=== PATIENT | male | born 1995 | race Caucasian/White ===

== ENCOUNTER 2021-06-01 16:01 | Outpatient (CLI) | payer SELFPAY ==
--- NOTE | 2021-06-01 16:16 | MR_ITS ---
WS: [id number] MRI BRAIN WITHOUT CONTRAST HISTORY: WEAKNESS LEFT SIDE OF BODY/NEW ONSET SEIZURE COMPARISON: None available. TECHNIQUE: Diffusion imaging, multiplanar T1, T2 and FLAIR imaging obtained. Additional high-resoluti on imaging through the temporal lobes. No evidence for acute infarct or hemorrhage. Ambrocio-white matter differentiation is normal. No white ma tter lesions are identified. No pericallosal and callosal signal abnormalities. No prior infarct. Sym metric appearance of the hippocampal formations. No remote or acute infarcts are volume loss. Ventricles and extra-axial spaces are normal. No inferior displacement of cerebellar tonsils. The sella turcica and pituitary gland are unremarkabl e. Unenhanced appearance of the optic nerves is negative. Dural venous sinuses and [place] of [place] demonstrate no abnormality on this unenhanced studies. Paranasal sinuses: Mucous retention cysts in the RIGHT maxillary sinus. Mild mucoperiosteal thickenin g of the maxillary and ethmoid air cells. No air-fluid levels. Mastoid air cells: Very dense soft tissue filling the RIGHT mastoid air cells. Consistent with mastoi ditis. Calvarium and scalp: Intact. MR/MR head wo con* [id number] IMPRESSION: 1. No acute infarct. 2. No white matter lesions or pericallosal signal abnormalities. 3. Unenhanced appearance of the optic nerves is negative. 4. Dense consolidation RIGHT mastoid air cells.
== END 2021-06-01 16:02 | disposition home or self-care (01) ==
PROVIDERS: PCP Family Medicine; Visit Provider Family Medicine
DX: G81.90 Hemiplegia, unspecified affecting unspecified side (principal); R56.9 Unspecified convulsions
CPT/HCPCS: 70551

== ENCOUNTER → 2021-06-06 15:13 | Outpatient (BNVA) | payer SELFPAY | PROVIDERS: PCP Family Medicine; Visit Provider Specialist | DX: R56.9 Unspecified convulsions (principal) | CPT/HCPCS: 95816 ==

== ENCOUNTER → 2021-06-10 15:02 | Outpatient (BNVA) | payer SELFPAY | PROVIDERS: PCP Family Medicine; Visit Provider Nurse Practitioner | DX: G40.909 Epilepsy, unspecified, not intractable, without status epilepticus (principal); F17.200 Nicotine dependence, unspecified, uncomplicated | CPT/HCPCS: 99204 ==

== ENCOUNTER → 2021-07-06 10:16 | Outpatient (BNVA) | payer SELFPAY | PROVIDERS: PCP Family Medicine; Visit Provider Specialist | DX: R56.9 Unspecified convulsions (principal); F17.200 Nicotine dependence, unspecified, uncomplicated | CPT/HCPCS: 95816 ==

== ENCOUNTER 2021-07-31 15:37 | Emergency (ER) | payer SELFPAY ==
[2021-07-31 15:59] VITALS: BP 134/78; PULSE 73; RESP 18; TEMP 36.7; O2SAT 98; BMI 18.6
--- NOTE | 2021-07-31 16:21 | W.ED.DENTAL ---
HPI - Dental/Oral General: Chief complaint: Dental/Oral Stated complaint: Tooth pain Time Seen by Provider: 07/31/21 16:13 History of Present Illness: HPI Narrative: Patient is a 25-year-old male comes to the ED with dental pain. Patient says several days ago he was eating some chips and felt a chip break of in the back left lower molar. He is now having some 7 out of 10 pain in his left lower molar. Patient is currently calling around to find a dentist. Associated symptoms: Denies fever(s) or odynophagia Review of Systems Const: Denies: fever(s), chills or fatigue Eyes: Denies: change in vision or eye discomfort ENMT: Reports: dental pain; Denies: throat pain, odynophagia, nasal discharge or nasal congestion Card: Denies: chest pain, palpitations, edema, swelling of feet/ankles, dyspnea on exertion or orthopnea Resp: Denies: dyspnea, productive cough or non-productive cough GI: Denies: abdominal pain, nausea, vomiting, diarrhea, constipation or hematochezia : Denies: flank pain, difficulty urinating, dysuria or hematuria Musc: Denies: neck pain, back pain or extremity swelling Skin/Breast: Denies: rash or new lesions Neuro: Denies: headache(s), numbness in extremities or weakness in extremities PFSH ED PFSH: Social History Smoking and tobacco status: current every day smoker Alcohol intake: never History of recent travel: No Physical Exam Const: COMMON NORMALS: no acute distress, patient oriented x3, healthy appearing and alert GENERAL APPEARANCE: cooperative and comfortable HENMT: COMMON NORMALS: normocephalic HEAD & SCALP: normocephalic MOUTH: Normal oral and palatal mucosa present TEETH & GINGIVA: Yes abnormal tooth and associated gingiva lower left third molar tender and with associated gingival edema, Yes caries and Yes poor dentition THROAT: posterior oropharynx normal and uvula midline Neck/C-Spine: COMMON NORMALS: supple GENERAL: Yes normal visual inspection Resp: COMMON NORMALS: normal respiratory effort, No retractions, No use of accessory muscles and clear to auscultation bilaterally AUSCULTATION: clear to auscultation bilaterally Cardio: COMMON NORMALS: regular rate, regular rhythm, S1 normal heart sound present, S2 normal heart sound present, No gallops present (Cardio), No clicks present (Cardio), No murmurs present (Cardio) and Peripheral pulses 2+ throughout RATE: regular rate RHYTHM: regular rhythm HEART SOUNDS: S1 normal heart sound present and S2 normal heart sound present PERIPHERAL PULSES: Peripheral pulses 2+ throughout GI: COMMON NORMALS: Normal to inspection, nondistended, normoactive bowel sounds present, Soft to palpation, non-tender and no masses PALPATION: Yes Soft to palpation : COMMON NORMALS: Yes no CVA tenderness BLADDER/KIDNEY EXAM: Yes no CVA tenderness Back/Pelvis: COMMON NORMALS: no CVA tenderness Extremity: COMMON NORMALS: normal to inspection Neuro: COMMON NORMALS: patient oriented x3 and moves all extremities SENSORIUM/ORIENTATION: Yes alert Skin: GENERAL SKIN EXAM: dry skin Course Vital Signs: Vital signs: Vital Signs Temperature 98.1 F 07/31/21 15:59 Pulse Rate 73 07/31/21 15:59 Respiratory Rate 20 H 07/31/21 16:38 Blood Pressure 134/78 07/31/21 15:59 Pulse Oximetry 98 07/31/21 15:59 MDM - Dental/Oral MDM Narrative: Medical decision making narrative: Patient is a 25-year-old male comes to the ED with dental pain. Patient was discharged home with a prescription for ibuprofen for pain and clindamycin. Patient told to contact dentist and get set up with an appointment for further evaluation as soon as possible. Return to ED precautions given. Patient understood agree with plan. Discharge Plan Discharge Patient Disposition: Home Clinical Impression: Pain due to dental caries Condition: Stable Prescriptions: New clindamycin HCl 150 mg capsule 300 mg PO QID 7 Days Qty: 56 RF: 0 ibuprofen 800 mg tablet 800 mg PO Q8H PRN (Reason: pain) Qty: 20 RF: 0 Medrol (Guerrero) 4 mg tablets,dose pack See Rx Instructions .ROUTE .COMPLEX Qty: 21 RF: 0 No Action levetiracetam [Keppra] 500 mg tablet 500 mg PO BID Qty: 60 RF: 6 Discharge Orders: Discharge ED (Routine); Ordered 07/31/21 Ordered By: Yoan Mcfarland Referrals: Goran Jacob MD [Primary Care Provider] - Discharge Diet: Regular Discharge Activity: Resume usual activity Patient Instructions: Dental Caries (Cavities) Activity Restrictions/Additional Instructions: Call and get appointment set up with dentist as soon as possible. Take medications as prescribed. Return to the ER or your medical provider if condition worsens. Please read and understand discharge instructions. Thank you for choosing [facility] for your healthcare needs today. Please realize this is an emergency room and that we are providing you with a medical screening exam and this may not be complete and all inclusive of all the testing and or work up that you may need to determine your ailment or severity of your illness. It is very important that you follow up as instructed or that you return to the Emergency Department should you have concerns or if your condition changes or worsens in any way. Coding Level of Care Code ED Legal Paraprofessional for Maricarmen Samano Exam Comprehensive
[2021-07-31] MEDS: HYDROcodone-acetaminophen 5-325 mg Tablet 1 TAB PO (16:37)
[2021-07-31 16:38] VITALS: RESP 20
== END 2021-07-31 16:39 | disposition home or self-care (01) ==
PROVIDERS: Emergency Provider Physician Assistant; PCP Family Medicine
DX: K02.9 Dental caries, unspecified (principal); F17.210 Nicotine dependence, cigarettes, uncomplicated
CPT/HCPCS: 99282

== ENCOUNTER 2022-05-30 08:50 | Emergency (ER) | payer MEDICAID, SELFPAY ==
[2022-05-30 08:58] VITALS: BP 114/65; PULSE 68; RESP 16; O2SAT 97; BMI 18.6
[2022-05-30 09:42] LABS: Valproic Acid Level 2.8 ug/mL (50-100)
[2022-05-30 09:43] LABS: Basophils # 0.1 10^3/uL (0.0-0.1); Basophils % 1.2 %; Eosinophils # 0.3 10^3/uL (0.0-0.8); Eosinophils % 5.8 %; Hemoglobin 14.2 g/dL (11.7-16.6); Lymphocytes # 2.1 10^3/uL (0.8-4.8); Lymphocytes % 39.5 %; Mean Corpuscular HGB Conc 33.8 g/dL (30.0-36.0); Mean Corpuscular Hemoglobin 31.6 pg (28.0-34.0); Mean Corpuscular Volume 93.3 fl (80-94); Mean Platelet Volume 10.6 fL (7.4-10.4); Monocytes # 0.6 10^3/uL (0.2-0.9); Monocytes % 11.9 %; Neutrophils # 2.16 10^3/uL (1.8-7.7); Neutrophils % 41.4 %; Nucleated Red Blood Cells % 0 %; Platelet Count 225 10^3/cmm (130-400); Red Cell Distribution Width 12.1 % (12.1-15.1); White Blood Count 5.2 10^3/uL (4.0-10.0)
--- NOTE | 2022-05-30 09:44 | PC.PHAR ---
pt states he takes care of his own medications-pt states he stop taking the keppra 500mg bid on 05/22/22 rx bottle brought in was dated 11/21/21 90d/s for 500mg bid pt states he was taking keppra 750mg then had to switch back to the keppra 500mg tabs states thats why he had some left over-pt states stop taking keppra 500mg bid on 05/22/22 and started taking depakore er 500mg hs
[2022-05-30 09:47] LABS: Alanine Aminotransferase 16 U/L (0-41); Albumin Level 4.9 g/dL (3.5-5.2); Alkaline Phosphatase 69 IU/L (40-130); Anion Gap 16.3 (5-19); Aspartate Amino Transferase 19 U/L (0-40); Blood Urea Nitrogen 14 mg/dL (6-20); Carbon Dioxide 28 mmol/L (22-29); Chloride 102 mmol/L (98-107); Creatinine Clr Calc Pharmacy 103.7382; Globulin 2.5 g/dL (1.3-4.6); Glucose 91 mg/dL (65-115); Osmolality Calculated 294 mOsm/kg (285-295); Potassium 4.3 mmol/L (3.5-5.1); Sodium 142 mmol/L (136-145); Total Bilirubin 0.7 mg/dL (0.15-1.2); Total Protein 7.4 g/dL (6.6-8.7)
[2022-05-30 09:59] LABS: Add Urine Microscopic? NO; Charge for UA Resulting for Rev
[2022-05-30 10:01] LABS: Bilirubin Urine Neg (Negative); Blood Urine Neg (Negative); Glucose Urine UA Norm (Normal); Ketones Urine Negative (Negative); Leukocyte Esterase Urine Negative (Negative); Nitrate Urine Negative (Negative); Protein Urine Neg (Negative); Urine Appearance Clear (CLEAR); Urine Color Yellow (Yellow); Urobilinogen Urine Norm (Negative); pH Urine 6 (5-7)
--- NOTE | 2022-05-30 10:51 | ED_ITS ---
HPI - Seizure General: Chief Complaint: Seizure Stated Complaint: SEIZURE Time Seen by Provider: 05/30/22 08:52 History of Present Illness: HPI Narrative: 26-year-old male with a history of seizures presents emergency room after having had a seizure this morning at 5:30 AM. He can remember he was bending over to grab something and then he has approximately a 2-hour gap before he can recollect anything else. He has some generalized myalgias. He found himself wedged with his leg between a fan and a bedside table when he woke up. He denies any other injuries. They recently have been adjusting his seizure medications he sees Dr. Austin he had been titrating him off of Keppra and starting by valproic acid because he had been having breakthrough seizures on the Keppra. He did miss a dose of the dye valproic acid last evening. MD complaint: seizure Onset (ago): minute(s) Description of Episode: tonic-clonic movement Seizure History: Yes Place: Home Possible Precipitating Event: medication (Changes) Associated symptoms: Reports confusion; Deny chest pain, chills, cough, diaphoresis, fever(s), anorexia, malaise, rash, short of breath, syncope or weakness Review of Systems Const: Denies: fever(s), chills, fatigue, malaise or diaphoresis ENMT: Denies: throat pain, ear or mastoid pain, nasal discharge or nasal congestion Card: Denies: chest pain or syncope Resp: Denies: dyspnea, productive cough or non-productive cough GI: Denies: abdominal pain, nausea, vomiting, hematemesis, coffee ground emesis, diarrhea, constipation, bloating, hematochezia or melena : Denies: flank pain, difficulty urinating, dysuria, urinary frequency or urinary urgency Musc: Denies: neck pain or back pain Skin/Breast: Denies: rash or pruritus Neuro: Reports: confusion PFSH ED PFSH: Medical History Seizure disorder Social History Smoking and tobacco status: current every day smoker Alcohol intake: never History of recent travel: No Physical Exam Const: COMMON NORMALS: no acute distress GENERAL APPEARANCE: cooperative and comfortable ORIENTATION/CONSCIOUSNESS: Yes awake, Yes oriented to person, Yes oriented to place and Yes oriented to time HENMT: COMMON NORMALS: normocephalic, atraumatic and hearing grossly normal bilaterally HEAD & SCALP: normocephalic and atraumatic Resp: COMMON NORMALS: normal respiratory effort, No retractions, No use of accessory muscles and clear to auscultation bilaterally AUSCULTATION: clear to auscultation bilaterally Cardio: COMMON NORMALS: regular rate, regular rhythm and No murmurs present (Cardio) RATE: regular rate RHYTHM: regular rhythm GI: COMMON NORMALS: Soft to palpation and No hepatosplenomegaly present AUSCULTATION: Yes normoactive bowel sounds PALPATION: Yes Soft to palpation, No Tenderness to palpation present (GI), No Guarding due to palpation present (GI) and Yes No hepatosplenomegaly present Extremity: COMMON NORMALS: normal to inspection, capillary refill normal, no clubbing, cyanosis or edema, no calf tenderness and no pedal edema Neuro: SENSORIUM/ORIENTATION: Yes oriented to person, Yes oriented to place and Yes oriented to time Skin: COMMON NORMALS: no rashes or lesions noted GENERAL SKIN EXAM: no rashes or lesions noted Course Vital Signs: Vital signs: Vital Signs Pulse Rate 65 05/30/22 11:58 Respiratory Rate 16 05/30/22 11:58 Blood Pressure 112/58 05/30/22 11:58 Pulse Oximetry 99 05/30/22 11:58 Oxygen Delivery Me thod 05/30/22 08:58 MDM - Seizure MDM Narrative Medical decision making narrative: Patient has known seizure disorder they have been adjusting his medications. We will increase his divalproex to 2000 mg at at bedtime. Medical Records Attestation: I reviewed the patient's medical records. Lab Data Attestation: I reviewed the patient's lab results. Result diagrams: 05/30/22 09:00 05/30/22 09:00 Labs: Laboratory Results WBC 5.2 10^3/uL (4.0-10.0) 05/30/22 09:00 RBC 4.50 10^6/uL (4.1-5.3) 05/30/22 09:00 Hgb 14.2 g/dL (11.7-16.6) 05/30/22 09:00 Hct 42.0 % (42.0-52.0) 05/30/22 09:00 MCV 93.3 fl (80-94) 05/30/22 09:00 MCH 31.6 pg (28.0-34.0) 05/30/22 09:00 MCHC 33.8 g/dL (30.0-36.0) 05/30/22 09:00 RDW 12.1 % (12.1-15.1) 05/30/22 09:00 Plt Count 225 10^3/cmm (130-400) 05/30/22 09:00 MPV 10.6 fL (7.4-10.4) H 05/30/22 09:00 Neut % (Auto) 41.4 % 05/30/22 09:00 Lymph % (Auto) 39.5 % 05/30/22 09:00 [place] % (Auto) 11.9 % 05/30/22 09:00 Eos % (Auto) 5.8 % 05/30/22 09:00 Baso % (Auto) 1.2 % 05/30/22 09:00 Neut # (Auto) 2.16 10^3/uL (1.8-7.7) 05/30/22 09:00 Lymph # (Auto) 2.1 10^3/uL (0.8-4.8) 05/30/22 09:00 [place] # (Auto) 0.6 10^3/uL (0.2-0.9) 05/30/22 09:00 Eos # (Auto) 0.3 10^3/uL (0.0-0.8) 05/30/22 09:00 Baso # (Auto) 0.1 10^3/uL (0.0-0.1) 05/30/22 09:00 Nucleated RBC % (auto) 0 % 05/30/22 09:00 Nucleated RBCs # 0.0 /100WBC 05/30/22 09:00 Sodium 142 mmol/L (136-145) 05/30/22 09:00 Potassium 4.3 mmol/L (3.5-5.1) 05/30/22 09:00 Chloride 102 mmol/L (98-107) 05/30/22 09:00 Carbon Dioxide 28 mmol/L (22-29) 05/30/22 09:00 Anion Gap 16.3 (5-19) 05/30/22 09:00 BUN 14 mg/dL (6-20) 05/30/22 09:00 Creatinine 0.9 mg/dL (0.7-1.2) 05/30/22 09:00 GFR Calculation 102.0 mL/min (90-130) 05/30/22 09:00 Glucose 91 mg/dL (65-115) 05/30/22 09:00 Calculated Osmolality 294 mOsm/kg (285-295) 05/30/22 09:00 Calcium 10.0 mg/dL (8.5-10.5) 05/30/22 09:00 Total Bilirubin 0.7 mg/dL (0.15-1.2) 05/30/22 09:00 AST 19 U/L (0-40) 05/30/22 09:00 ALT 16 U/L (0-41) 05/30/22 09:00 Alkaline Phosphatase 69 IU/L (40-130) 05/30/22 09:00 Total Protein 7.4 g/dL (6.6-8.7) 05/30/22 09:00 Albumin 4.9 g/dL (3.5-5.2) 05/30/22 09:00 Globulin 2.5 g/dL (1.3-4.6) 05/30/22 09:00 Urine Color Yellow (Yellow) 05/30/22 09:45 Urine Appearance Clear (CLEAR) 05/30/22 09:45 Urine pH 6 (5-7) 05/30/22 09:45 Ur Specific [place] 1.020 (1.005-1.030) 05/30/22 09:45 Urine Protein Neg (Negative) 05/30/22 09:45 Urine Glucose (UA) Norm (Normal) 05/30/22 09:45 Urine Ketones Negative (Negative) 05/30/22 09:45 Urine Blood Neg (Negative) 05/30/22 09:45 Urine Nitrate Negative (Negative) 05/30/22 09:45 Urine Bilirubin Neg (Negative) 05/30/22 09:45 Urine Urobilinogen Norm mg/dL (Negative) 05/30/22 09:45 Ur Leukocyte Esterase Negative (Negative) 05/30/22 09:45 Valproic Acid 2.8 ug/mL (50-100) L 05/30/22 09:00 Levetiracetam <2.0 mcg/mL (6.0-46.0) L 05/30/22 09:00 Discharge Plan Discharge Patient Disposition: Home Clinical Impression: Seizures Condition: Stable Prescriptions: Discontinued divalproex [Depakote ER] 500 mg tablet extended release 24 hr 500 mg PO BEDTIME No Action Depakote ER 500 mg tablet extended release 24 hr 1,000 mg PO BEDTIME Qty: 60 6RF ibuprofen 200 mg Tablet 400 mg PO Q6H PRN (Reason: Pain) Discharge Orders: Discharge ED (Routine); Ordered 05/30/22 Ordered By: Vernon Long Referrals: Goran Jacob MD [Primary Care Provider] - Discharge Diet: Usual diet Discharge Activity: Limit activity as instructed Patient Instructions: Opioid Safety Activity Restrictions/Additional Instructions: Follow-up with your neurologist as soon as you are able. Increase your Depakote to 1000 mg daily. Stand Alone Forms: Work/School Release Coding Level of Care Code ED Acid Tender for Maricarmen Samano
[2022-05-30 11:58] VITALS: BP 112/58; PULSE 65; RESP 16; O2SAT 99
[2022-05-31 10:38] LABS: Levetiracetam Immunoassy <2.0 mcg/mL (6.0-46.0)
== END 2022-05-30 12:00 | disposition home or self-care (01) ==
PROVIDERS: Emergency Provider Family Medicine; PCP Family Medicine
DX: R56.9 Unspecified convulsions (principal); F17.210 Nicotine dependence, cigarettes, uncomplicated
CPT/HCPCS: 80053; 80164; 80177; 81003; 85025; 99283

== ENCOUNTER → 2022-06-05 12:31 | Outpatient (BNVA) | payer MEDICAID, SELFPAY | PROVIDERS: PCP Family Medicine; Visit Provider Nurse Practitioner | DX: G40.909 Epilepsy, unspecified, not intractable, without status epilepticus (principal); Z79.899 Other long term (current) drug therapy; S06.0X9S Concussion with loss of consciousness of unspecified duration, sequela; Y93.9 Activity, unspecified | CPT/HCPCS: 99213; 99214 ==

== ENCOUNTER 2022-06-13 13:41 | Outpatient (CLI) | payer MEDICAID, SELFPAY ==
[2022-06-13 14:31] LABS: Ammonia 21 umol/L (16-60)
[2022-06-13 14:54] LABS: Valproic Acid Level 47.4 ug/mL (50-100)
== END 2022-06-13 13:42 | disposition home or self-care (01) ==
LOC: LAB 13:44
PROVIDERS: PCP Family Medicine; Visit Provider Nurse Practitioner
DX: R56.9 Unspecified convulsions (principal); Z79.899 Other long term (current) drug therapy
CPT/HCPCS: 80164; 82140

== ENCOUNTER 2022-07-10 14:57 | Outpatient (CLI) | payer BC, MEDICAID, SELFPAY ==
[2022-07-10 15:48] LABS: Basophils # 0.1 10^3/uL (0.0-0.1); Eosinophils # 0.3 10^3/uL (0.0-0.8); Eosinophils % 5.2 %; Hematocrit 41.8 % (42.0-52.0); Hemoglobin 13.8 g/dL (11.7-16.6); Lymphocytes # 1.8 10^3/uL (0.8-4.8); Lymphocytes % 34.5 %; Mean Corpuscular Hemoglobin 31.1 pg (28.0-34.0); Mean Corpuscular Volume 94.1 fl (80-94); Mean Platelet Volume 10.4 fL (7.4-10.4); Monocytes # 0.6 10^3/uL (0.2-0.9); Monocytes % 10.5 %; Neutrophils # 2.56 10^3/uL (1.8-7.7); Neutrophils % 48.8 %; Nucleated Red Blood Cells % 0 %; Platelet Count 236 10^3/cmm (130-400); Red Blood Count 4.44 10^6/uL (4.1-5.3); Red Cell Distribution Width 12.2 % (12.1-15.1); White Blood Count 5.2 10^3/uL (4.0-10.0)
[2022-07-10 16:06] LABS: Alanine Aminotransferase 13 U/L (0-41); Albumin Level 4.5 g/dL (3.5-5.2); Alkaline Phosphatase 63 U/L (40-130); Anion Gap 15.2 (5-19); Aspartate Amino Transferase 13 U/L (0-40); Blood Urea Nitrogen 15 mg/dL (6-20); Calcium 9.4 mg/dL (8.5-10.5); Carbon Dioxide 26 mmol/L (22-29); Chloride 103 mmol/L (98-107); Globulin 2.8 g/dL (1.3-4.6); Glomerular Filtration Rate 116.9 mL/min (90-130); Glucose 67 mg/dL (65-115); Osmolality Calculated 289 mOsm/kg (285-295); Potassium 4.2 mmol/L (3.5-5.1); Sodium 140 mmol/L (136-145); Total Bilirubin 0.3 mg/dL (0.15-1.2); Total Protein 7.3 g/dL (6.6-8.7)
[2022-07-10 16:08] LABS: Ammonia 24 umol/L (16-60)
== END 2022-07-10 14:58 | disposition home or self-care (01) ==
LOC: LAB 15:05
PROVIDERS: PCP Family Medicine; Visit Provider Nurse Practitioner
DX: G40.909 Epilepsy, unspecified, not intractable, without status epilepticus (principal)
CPT/HCPCS: 80053; 80164; 82140; 85025

== ENCOUNTER → 2022-07-21 10:09 | Outpatient (BNVA) | payer BC, MEDICAID, SELFPAY | PROVIDERS: PCP Family Medicine; Referring Provider Nurse Practitioner; Visit Provider Specialist | DX: G40.909 Epilepsy, unspecified, not intractable, without status epilepticus (principal); F43.10 Post-traumatic stress disorder, unspecified; R55 Syncope and collapse; R56.9 Unspecified convulsions; Z79.899 Other long term (current) drug therapy | CPT/HCPCS: 36415; 80164 ==